=== PATIENT | male | born 1965 | race Caucasian/White ===

== ENCOUNTER 2025-05-04 08:00 | Outpatient (RCR) | payer BC, SELFPAY ==
--- NOTE | 2025-02-07 09:06 | OPREHPOC ---
Outpatient Therapy Plan of Care This is a Multidisciplinary Plan of Care that may contain components documented by all disciplines (PT, OT, and ST.) PT Problem 1 PT Problem #1 Knowledge Deficit PT Goal 1 Goal / Goal Update Gaines and compliance with HEP Target Visit 4 PT Goal 2 Goal / Goal Update Patient will report no pain greater than 2/10 for 2 consistent weeks Target Visit 8 PT Problem 2 PT Problem #2 Impaired Range of Motion PT Goal 1 Goal / Goal Update 1. Patient will present with improved cervical rotation ROM of 60 degrees bilaterally for safety with driving 2. Patient will improve cervical flexion ROM by [address] degrees [address] of [address] junction pain Target Visit 8 PT Problem 3 PT Problem #3 Impaired Strength PT Goal 1 Goal / Goal Update 1. Improve right shoulder flexion strength to 5/5 to improve scapular stability and lifting ability with absence of cervical spine pain Target Visit 8 PT Problem 4 PT Problem #4 Impaired Functional ADLs PT Goal 1 Goal / Goal Update 1. Patient will have improved resting comfort with exclusion of shoulder elevation above head to improve driving comfort and safety. Target Visit 8
--- NOTE | 2025-02-07 09:06 | PTOPEVAL1 ---
Assessment and note entered by Roberth Quevedo, PT Evaluation Information Assessment Status Evaluation Diagnosis Cervical Radiculopathy, Myalgia ICD-10 Condition Codes (PT) Cervicalgia M54.2 Onset 2020 Subjective Information Reports that in 2020 approximately he had shoulder surgery after a fall and trauma to the shoulder. Reports that the shoulder was doing well for a while but now has a pulling sensation in his neck. He had an injection to help with the pain but feels it did not help. He has had them in his back as well prior. He is more comfortable when his arm is over his head. He is on gabapentin for early neuropathy. Feels he sleeps fairly decent. Fells that he is weak in is right arm. He is left handed. Feels he is regressing to where he was prior to his surgery on the shoulder. MD wanting to order MRI to assess anatomy of neck. Reported Pain Level Pain Score 4: Self Report Assessment PT Clinical Summary Patient presents to physical therapy with reports of neck and shoulder pain affecting his ADLs, IADLs and functional movements such as reaching overhead. Upon objective testing deficits were found in R upper extremity strength and cervical ROM with pain provocation. Pt was educated on pathophysiology of cervical radicular symptoms and was provided management strategies and home exercise program. Patient treatment shoulder reemphasize postural stabilization and cervical decompression. Plan of Care Interventions Electrical Stimulation,Hot Pack/Cold Pack,Manual Therapy,Mechanical Traction,Neuro Re-education, Patient/Caregiver Education,Therapeutic Activities ,Therapeutic Exercise PT Services Indicated Yes Treatment Frequency and 2x/week for 8 visits Duration These treatments will address the objective and functional deficits as defined above. The patient will be advanced safely and appropriately in order for the patient to progress towards his/her prior level of function. Additional exercises will be introduced and as well as a comprehensive home exercise program upon discharge, if needed, ?to ensure carryover of functional gains achieved in the clinic. This treatment plan has been reviewed and agreement upon by the patient.
--- NOTE | 2025-03-07 09:51 | OPREHPOC ---
Outpatient Therapy Plan of Care This is a Multidisciplinary Plan of Care that may contain components documented by all disciplines (PT, OT, and ST.) PT Problem 1 PT Problem #1 Knowledge Deficit PT Goal 1 Goal / Goal Update Gilbert and compliance with HEP Target Visit 4 Progress Met PT Goal 2 Goal / Goal Update Patient will report no pain greater than 2/10 for 2 consistent weeks Target Visit 16 Progress Partially Met PT Problem 2 PT Problem #2 Impaired Range of Motion PT Goal 1 Goal / Goal Update 1. Patient will present with improved cervical rotation ROM of 60 degrees bilaterally for safety with driving 2. Patient will improve cervical flexion ROM by [address] junction pain 03/07/25: Partially met rotation, improved Target Visit 16 Progress Partially Met PT Problem 3 PT Problem #3 Impaired Strength PT Goal 1 Goal / Goal Update 1. Improve right shoulder flexion strength to 5/5 to improve scapular stability and lifting ability with absence of cervical spine pain 03/07/25: Weakness still noted Target Visit 16 Progress Partially Met PT Problem 4 PT Problem #4 Impaired Functional ADLs PT Goal 1 Goal / Goal Update 1. Patient will have improved resting comfort with exclusion of shoulder elevation above head to improve driving comfort and safety. Target Visit 8 Progress Met PT Problem 5 PT Problem #5 Impaired Flexibility PT Goal 1 Goal / Goal Update 1. Demonstrate -20 degrees or better malissa hamstring restriction 2. Report 50% improvement in frequency and intensity of lumbar radicular symptoms Target Visit 16
--- NOTE | 2025-03-07 09:51 | PTOPPROG ---
Assessment and note entered by Roberth Quevedo, PT Evaluation Information Assessment Status Re-evaluation Diagnosis Cervical Radiculopathy, Myalgia ICD-10 Condition Codes (PT) Cervicalgia M54.2 Onset 2020 Subjective Information Reports that he is still getting the pain in the neck that comes and goes. He feels that he is about 70% better but the pain is still there and he is still weak in his shoulder. His back and leg have been bothering him for about 9 months. He has a new order for this. He has done some Melissa program and felt better initially but has recently been having more pain. Pain medication has not been helping during the day as he feels like a zombie during the day. He has history of injections with no improvement. All of the radicular issues are on the left side, but he has localized back pain as well. He is taking gabapentin and muscle relaxers for sleep. Assessment PT Clinical Summary Patient is showing signs and symptoms consistent with left sided sciatica. Treatment today emphasized sciatic nerve flossing and nerve decompression exercise. He has shows some cervical motion improvement at this time but still has notable pain. We discussed potential of receiving MRI to assess soft tissues of cervical spine. Had some initial positive reaction to treatment this date with spinal decompression. Will benefit form continuation of therapy with addition of lumbar spine. Plan of Care Interventions Electrical Stimulation,Hot Pack/Cold Pack,Manual Therapy,Mechanical Traction,Neuro Re-education, Patient/Caregiver Education,Therapeutic Activities ,Therapeutic Exercise PT Services Indicated Yes Treatment Frequency and 2x/week for 8 visits Duration These treatments will address the objective and functional deficits as defined above. The patient will be advanced safely and appropriately in order for the patient to progress towards his/her prior level of function. Additional exercises will be introduced and as well as a comprehensive home exercise program upon discharge, if needed, ?to ensure carryover of functional gains achieved in the clinic. This treatment plan has been reviewed and agreement upon by the patient.
--- NOTE | 2025-04-06 10:13 | PTOPPROG ---
Assessment and note entered by Kodak Javier PT Evaluation Information Assessment Status Progress - Pt Not Present Diagnosis Cervical Radiculopathy, Myalgia, Lumbar radiculopathy ICD-10 Condition Codes (PT) Cervicalgia M54.2,Radiculopathy, lumbar region M54 .16 Onset 2020 Subjective Information Pt reports he has an MRI scheduled for tomorrow for his neck to further address cervical radiculopathy. Pt notes improved mobility in his neck and decreased pain going down R arm but now has a similar feeling in his L shoulder. Pt notes his low back and leg pain is still his primary concern because of the pain intensity and how it effects his ability to maintain his property and care take for his mother. Pt states some days he feels good and is able to stay busy and then when he rest the pain intensity increases and effects his ability to walk and has difficulty with getting his shoes and socks on. Assessment PT Clinical Summary Patient's cervical radiculopathy has improved overall as evidenced by advancements in symptoms, mobility, strength, and overall functional use of the extremity. However, some limitations are still present regarding the patient low back and LLE radicular symptoms. Skilled therapy is necessary to cue patient in proper technique do to abdominal coning and high pain levels. Patient would benefit from continued skilled physical therapy services to address the above listed impairments and to monitor/reduce radicular symptoms while facilitating a return to their prior level of function. Plan of Care Interventions Electrical Stimulation,Hot Pack/Cold Pack,Manual Therapy,Mechanical Traction,Neuro Re-education, Patient/Caregiver Education,Therapeutic Activities ,Therapeutic Exercise PT Services Indicated Yes Treatment Frequency and 2x week 8 visits Duration These treatments will address the objective and functional deficits as defined above. The patient will be advanced safely and appropriately in order for the patient to progress towards his/her prior level of function. Additional exercises will be introduced and as well as a comprehensive home exercise program upon discharge, if needed, ?to ensure carryover of functional gains achieved in the clinic. This treatment plan has been reviewed and agreement upon by the patient.
== END 2025-05-08 23:59 | disposition home or self-care (01) ==
LOC: ANHGOSHPT 08:00
DX: M54.2 Cervicalgia (principal); M54.6 Pain in thoracic spine; M54.12 Radiculopathy, cervical region; M54.14 Radiculopathy, thoracic region; M79.10 Myalgia, unspecified site
CPT/HCPCS: 97012; 97110; 97112; 97140; 97161; 97530

== ENCOUNTER 2025-05-18 08:00 | Outpatient (RCR) | payer BC, SELFPAY ==
--- NOTE | 2025-05-18 09:02 | PTOPDC ---
Assessment and note entered by Kodak Javier PT Evaluation Information Assessment Status Discharge Diagnosis Cervical Radiculopathy, Myalgia, Lumbar radiculopathy ICD-10 Condition Codes (PT) Cervicalgia M54.2,Radiculopathy, lumbar region M54 .16 Onset 2020 Subjective Information Pt states his lower back feels better and he has no pain going down the left leg. Pt states his lower back will sometimes feel stiff but he is able to to loosen it up with exercises. He notes his L shoulder pain that radiates from his neck is current primary concern. He notes he didn't sleep at all last night and has pain that gets up to a 9/10. He states he is not sure if it coming from his neck or is just a shoulder issue but he would like to move forward with meeting with a auditing specialist. Reported Pain Level Pain Score 0,3: Self Report Assessment PT Clinical Summary Pt has been seen and treated for both lumbar and cervical radiculopathies. Pt has seen improvements in lumbar radiculopathy by evidence of decreased symptoms and increased standing/walking tolerance. However pt continues to have severe cervical symptoms that radiate into MOHIT UE with the primary concern being L shoulder that is most present at night. With MRI results showing advanced nerve root compression, and current symptoms not being relived by physical therapy intervention pt was educated and advised to seek a neurosurgeon consultation. . Patient's physical therapy goals relating to cervical radiculopathy remain unmet. Patient to discharge from physical therapy this date and continue with home exercise program as instructed. Patient to contact physical therapist or primary care provider if questions or concerns arise. Plan of Care PT Services Indicated No
== END 2025-05-18 16:11 | disposition home or self-care (01) ==
LOC: ANHGOSHPT 08:00
DX: M54.2 Cervicalgia (principal); M54.6 Pain in thoracic spine; M54.12 Radiculopathy, cervical region; M54.14 Radiculopathy, thoracic region; M54.16 Radiculopathy, lumbar region; M54.32 Sciatica, left side; M53.3 Sacrococcygeal disorders, not elsewhere classified; M79.10 Myalgia, unspecified site
CPT/HCPCS: 97110; 97140